=== PATIENT | male | born 1965 | race Caucasian/White ===

== ENCOUNTER 2016-06-06 15:44 | Emergency (ER) | payer BC ==
[~2016-06-06] VITALS: Ht 175.3 cm; Wt 93.0 kg
[~2016-06-06 15:44] MED LIST: CENTRUM COMPLE1 EACH PO; KEPPRA1000 MG PO
== END 2016-06-06 18:06 | disposition short-term general hospital (02) ==
LOC: ER 15:44
DX: G40.909 Epilepsy, unspecified, not intractable, without status epilepticus (principal); M54.5 Low back pain; C71.9 Malignant neoplasm of brain, unspecified; Z79.899 Other long term (current) drug therapy
CPT/HCPCS: J1885